=== PATIENT | female | born 2000 | race African-American/Black ===

== ENCOUNTER 2021-10-03 20:13 | Emergency (ER) | payer BC, OTHER ==
[~2021-10-03] VITALS: Ht 160 cm; Wt 104.8 kg
[2021-10-03] MEDS ORDERED: MUCINEX DM ER1 EACH PO (21:52)
== END 2021-10-03 23:10 | disposition home or self-care (01) ==
LOC: ER 20:36
DX: R05.9 Cough, unspecified (principal); J06.9 Acute upper respiratory infection, unspecified
CPT/HCPCS: 99282; U0002